=== PATIENT | female | born 2000 | race Two or more races ===

== ENCOUNTER → 2025-05-25 | Outpatient (CLI) | payer MEDICAID, SELFPAY ==
--- NOTE | 2025-05-25 14:00 | ECHO_ITS ---
Transthoracic Echo Report Ht (in): 63 Wt (lb): 187 Exam Location: Echo Lab Status: Preadmit [employer]: Erica Sargent Indications: Procedure Performed: BP: / HR: Technical Quality: Adequate MEASUREMENTS (Male / Female) Normal Values 2D ECHO LV Diastolic Diameter PLAX 4.4 cm 4.2 - 5.9 / 3.9 - 5.3 cm LV Systolic Diameter PLAX 3.0 cm IVS Diastolic Thickness 0.7 cm 0.6 - 1.0 / 0.6 - 0.9 cm LVPW Diastolic Thickness 0.7 cm 0.6 - 1.0 / 0.6 - 0.9 cm LV Relative Wall Thickness 0.3 LVOT Diameter 1.8 cm LA Volume Index 19.1 cm?/m? 16 - 28 cm?/m? Ascending Aorta Diameter 2.3 cm DOPPLER AV Peak Velocity 145.0 cm/s AV Peak Gradient 8.4 mmHg LVOT Peak Velocity 92.6 cm/s LVOT Peak Gradient 3.4 mmHg AV Area Cont Eq pk 1.6 cm? MV Area PHT 3.3 cm? Mitral E Point Velocity 95.1 cm/s Mitral A Point Velocity 54.8 cm/s Mitral E to A Ratio 1.7 LV E' Lateral Velocity 19.6 cm/s Mitral E to LV E' Lateral Ratio 4.9 LV E' Septal Velocity 11.9 cm/s Mitral E to LV E' Septal Ratio 8.0 TR Peak Velocity 219.0 cm/s TR Peak Gradient 19.2 mmHg PV Peak Velocity 122.0 cm/s PV Peak Gradient 6.0 mmHg FINDINGS Left Ventricle Normal left ventricular size, wall thickness, systolic function with no obvious regional wall motion abnormalities. Normal left ventricular diastolic filling pattern for age. The ejection fraction is visually estimated at 60 %. Right Ventricle The right ventricle is normal in size and systolic function. The estimated right ventricular systolic pressure, 19 mmHg. RAP 5mmHg. Left Atrium The left atrium is normal by two-dimensional, color flow and Doppler imaging with no structural abnormalities, no thrombus formation present. Right Atrium The right atrium is normal by two-dimensional imaging, color flow and Doppler imaging with no structural abnormalities, no thrombus formation present. Atrial Septum The interatrial septum appears normal with no evidence of a shunt. Aorta The aorta is normal by two-dimensional, color flow and Doppler interrogation. Mitral Valve The mitral valve is normal by two-dimensional, color flow and Doppler interrogation. There is no significant mitral valve regurgitation, stenosis or prolapse. Aortic Valve The aortic valve is trileaflet and normal by two-dimensional, color flow and Doppler interrogation. There is no significant aortic valve regurgitation. Tricuspid Valve The tricuspid valve is normal by two-dimensional, color flow and Doppler interrogation. There is mild tricuspid valve regurgitation. Pulmonic Valve The pulmonic valve is not well visualized. There is no significant pulmonic valve regurgitation. Vessels The pulmonary artery appears normal. The inferior vena cava pulmonary and hepatic veins appear normal. Pericardium The pericardium is normal by two-dimensional imaging. There is no significant pericardial effusion. CONCLUSIONS Indications: Palpitations Normal LV size and function. Estimated EF 60-65%. Normal diastolic function. Normal RV size and function. Normal RVSP. Trace to mild TR. No Pericardial Effusion. Kun Lees (Electronically Signed) Final Date: 25 May 2025 23:25
== END | disposition home or self-care (01) ==
LOC: SDIM 13:37
DX: I07.1 Rheumatic tricuspid insufficiency (principal); R00.2 Palpitations
CPT/HCPCS: 93306